=== PATIENT | female | born 1985 | race Caucasian/White ===

== ENCOUNTER → 2024-02-07 | Outpatient (CLI) | payer BC ==
[~2024-02-07] MED LIST: IBU800 M1 PO; PRENATAL TABLET PO
== END ==
LOC: COL.RAD 12:07
DX: K82.8 Other specified diseases of gallbladder (principal)

== ENCOUNTER → 2024-03-11 | Outpatient (CLI) | payer BC ==
[~2024-03-11] MED LIST changes: +NS IV ONE; +SINCALIDE IV ONE
== END ==
LOC: COL.RAD 09:19
DX: R10.11 Right upper quadrant pain (principal); R11.0 Nausea
CPT/HCPCS: A9537-JZ; J2805